=== PATIENT | female | born 1960 | race Caucasian/White ===

== ENCOUNTER 2020-10-04 09:30 | Emergency (ER) | payer MEDICARE, OTHER ==
[~2020-10-04] VITALS: Ht 172.7 cm; Wt 115.2 kg
[~2020-10-04 09:30] MED LIST: ABILIFY5 MG PO; ACETAMINOPHEN325 M1 PO; AMITRIPTYLINE H25 MG PO; AMLODIPINE BES2.5 MG PO; ATORVASTATIN CA40 MG PO; ATORVASTATIN CA80 MG PO; BACTRIM DS TAB1 EACH PO; BASAGLAR K100 UNIT/1; BENADRYL25 MG PO; CEPHALEXIN500 MG PO; CITALOPRAM HBR10 MG PO; CLOPIDOGREL75 MG PO; COMPAZINE25 MG RC; DIFLUCAN150 MG PO; DOXYCYCLINE HY100 MG PO; DULOXETINE HCL30 MG PO; GABAPENTIN300 MG PO; GABAPENTIN600 MG PO; GEODON60 MG PO; HYDROCHLOROTHIA25 MG PO; HYDROCODON-ACE1 EA14 PO; IBUPROFEN600 MG PO; JANUVIA100 MG PO; LEVAQUIN500 MG PO; LEVEMIR100 UNIT/1 SQ; LISINOPRIL20 MG PO; LISINOPRIL40 MG PO; LOVASTATIN20 MG PO; MAG-OXIDE400 MG PO; MELOXICAM7.5 MG; MELOXICAM7.5 MG PO; METFORMIN HCL500 M1 PO; METOPROLOL TAR100 MG PO; NORCO 5-325 TA1 EACH PO; NOVOLOG100 UNITS/ SUB-Q; OMEPRAZOLE20 MG PO; ONDANSETRON ODT4 MG SL; PERCOCET 5-3251 EACH PO; PROMETHAZINE HC25 M1 PO; PROZAC20 MG PO; SUCRALFATE1 GM/10 ML PO; SULINDAC150 MG PO
[2020-10-04] MEDS ORDERED: GABAPENTIN800 MG PO (09:41)
[2020-10-04] MEDS ORDERED: JARDIANCE25 MG PO (09:42)
[2020-10-04] MEDS ORDERED: GLIMEPIRIDE2 MG PO (09:43)
[2020-10-04] MEDS ORDERED: FLUOXETINE HCL20 M1 PO (09:44)
[2020-10-04] MEDS ORDERED: PREDNISONE20 MG PO (12:30)
== END 2020-10-04 13:03 | disposition home or self-care (01) ==
LOC: ED 09:30
DX: M54.5 Low back pain (principal); E11.42 Type 2 diabetes mellitus with diabetic polyneuropathy; I10 Essential (primary) hypertension; G43.909 Migraine, unspecified, not intractable, without status migrainosus; E66.9 Obesity, unspecified; E78.5 Hyperlipidemia, unspecified; F17.200 Nicotine dependence, unspecified, uncomplicated; Z88.8 Allergy status to other drugs, medicaments and biological substances; Z88.5 Allergy status to narcotic agent; Z79.899 Other long term (current) drug therapy; Z79.4 Long term (current) use of insulin
CPT/HCPCS: 72100; 80048; 85025; 96374; 96375; 99284-25; J1100; J1885

== ENCOUNTER 2020-10-07 14:41 | Emergency (ER) | payer MEDICARE, OTHER ==
[~2020-10-07] VITALS: Ht 172.7 cm; Wt 115.2 kg
[~2020-10-07 14:41] MED LIST changes: +FLUOXETINE HCL20 M1 PO; +GABAPENTIN800 MG PO; +GLIMEPIRIDE2 MG PO; +JARDIANCE25 MG PO; +PREDNISONE20 MG PO
--- OUTSIDE RECORDS SUMMARY | 2020-10-07 14:44 | XMS ---
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 E.Mehran VISIT COUNT (12 MO.) 2 [facility] TOTAL 2 NOTE: Visits indicate total known visits. ED/UCC VISIT TRACKING (12 MO.) 10/07/2020 14:42 [facility] TYPE: Emergency COMPLAINT: - FALL 10/04/2020 09:31 [facility] TYPE: Emergency COMPLAINT: - BACK PN DIAGNOSES: - Migraine, unspecified, not intractable, without status migrainosus - Essential (primary) hypertension - Hyperlipidemia, unspecified - Type 2 diabetes mellitus with diabetic polyneuropathy - Allergy status to narcotic agent - Allergy status to other drugs, medicaments and biological substances - Nicotine dependence, unspecified, uncomplicated - Obesity, unspecified - Low back pain - Other detention (current) drug therapy - 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
[2020-10-07] MEDS ORDERED: HYDROCODON-ACE1 EA11 PO (16:36)
== END 2020-10-07 16:53 | disposition home or self-care (01) ==
LOC: ED 14:41
DX: S70.01XA Contusion of right hip, initial encounter (principal); S80.01XA Contusion of right knee, initial encounter; W01.0XXA Fall on same level from slipping, tripping and stumbling without subsequent striking against object, initial encounter; E11.40 Type 2 diabetes mellitus with diabetic neuropathy, unspecified; I10 Essential (primary) hypertension; G43.909 Migraine, unspecified, not intractable, without status migrainosus; E66.9 Obesity, unspecified; E78.5 Hyperlipidemia, unspecified; F17.200 Nicotine dependence, unspecified, uncomplicated; Z88.5 Allergy status to narcotic agent; Z88.8 Allergy status to other drugs, medicaments and biological substances; Z79.899 Other long term (current) drug therapy; Z79.4 Long term (current) use of insulin; Z79.52 Long term (current) use of systemic steroids
CPT/HCPCS: 73502; 73560; 80053; 85025; 96374; 99284-25; A9270; J1170

== ENCOUNTER 2020-10-13 10:56 | Emergency (ER) | payer MEDICARE, OTHER ==
[~2020-10-13] VITALS: Ht 172.7 cm; Wt 115.2 kg
[~2020-10-13 10:56] MED LIST changes: +HYDROCODON-ACE1 EA11 PO
--- OUTSIDE RECORDS SUMMARY | 2020-10-13 11:02 | XMS ---
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 Donta VISIT COUNT (12 MO.) [address] [place] [address] TOTAL 3 NOTE: Visits indicate total known visits. 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 - Hyperlipidemia, unspecified - Allergy status to narcotic agent - Contusion of right knee, initial encounter - Allergy status to other drugs, medicaments and biological substances - Type 2 diabetes mellitus with diabetic neuropathy, unspecified - Obesity, unspecified - Other alf (current) drug therapy - Contusion of right hip, initial encounter - Essential (primary) hypertension 10/04/2020 09:31 [facility] TYPE: Emergency [...] unspecified - Low back pain - 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
--- NOTE | 2020-10-13 15:56 | EKG ---
[facility] [address] [facility] [place], [place] [address] Signed Sinus tachycardia Incomplete right bundle branch block Right ventricular hypertrophy Inferior infarct , age undetermined Anterolateral infarct , age undetermined Abnormal ECG No previous ECGs available Confirmed by YG NEAL MD ([id number] on 10/13/2020 3:56:14 PM Electronically Signed By: YG NEAL MD 10/13/20 1556 PATIENT NAME: DELTA RODRIGUEZ GRANT Electrocardiogram DATE OF : 64 PHYSICIAN: YG NEAL MD REPORT #: [id number] REPORT IS CONFIDENTIAL AND NOT TO BE RELEASED WITHOUT AUTHORIZATION
== END 2020-10-13 18:30 | disposition short-term general hospital (02) ==
LOC: ED 10:56
DX: M54.9 Dorsalgia, unspecified (principal); Z20.822 Contact with and (suspected) exposure to COVID-19; I10 Essential (primary) hypertension; E11.42 Type 2 diabetes mellitus with diabetic polyneuropathy; E66.9 Obesity, unspecified; E78.5 Hyperlipidemia, unspecified; F17.210 Nicotine dependence, cigarettes, uncomplicated; Z88.5 Allergy status to narcotic agent; Z88.8 Allergy status to other drugs, medicaments and biological substances; Z79.899 Other long term (current) drug therapy; Z79.52 Long term (current) use of systemic steroids; Z79.4 Long term (current) use of insulin
CPT/HCPCS: 70450; 71045; 72100; 72148; 72170; 80053; 81001; 83735; 84484; 85025; 87077; 87088; 87186; 96374; 96375; 96376; 99285-25; 99406; C9803; J2270; J2405; J3010; J7030; U0003